=== PATIENT | female | born 1990 | race Two or more races ===

== ENCOUNTER 2019-10-10 09:08 | Emergency (ER) | payer OTHER ==
[~2019-10-10] VITALS: Ht 157.5 cm; Wt 51.3 kg
[2019-10-10 09:25] VITALS: BP 113/84
[2019-10-10] MEDS ORDERED: HYDROCODONE/APAP 5/325MG 1 EACH TABLET ONE (09:51)
[2019-10-10] MEDS ORDERED: HYDROCODONE/APAP 5/325MG 1 EACH TABLET PO ONE (10:00)
== END 2019-10-10 10:13 | disposition home or self-care (01) ==
LOC: ER 09:13
DX: K08.89 Other specified disorders of teeth and supporting structures (principal); J45.909 Unspecified asthma, uncomplicated; Z98.890 Other specified postprocedural states

== ENCOUNTER 2019-10-12 07:35 | Emergency (ER) | payer OTHER ==
[~2019-10-12] VITALS: Ht 157.5 cm; Wt 50.8 kg
[2019-10-12 07:45] VITALS: BP 124/62
--- NOTE | 2019-10-12 08:32 | NUR ---
Patient discharged to home in stable condition. Written and verbal after care instructions given. Patient verbalizes understanding of instruction.
== END 2019-10-12 08:32 | disposition home or self-care (01) ==
LOC: ER 07:45
DX: K13.79 Other lesions of oral mucosa (principal); J45.909 Unspecified asthma, uncomplicated; Z76.0 Encounter for issue of repeat prescription; Z98.890 Other specified postprocedural states